=== PATIENT | female | born 1950 | race African-American/Black ===

== ENCOUNTER 2016-07-30 10:22 | Outpatient (CLI) | payer MEDICARE ==
[2016-07-30 11:28] LABS: ALT (SGPT) 10 U/L (0-55); AST (SGOT) 14 U/L (5-34); Alkaline Phosphatase 126 U/L (40-150); Anion Gap 16 mmol/L (10-20); BUN (Urea Nitrogen) 10 mg/dL (9.8-20.1); Bilirubin, Total 0.4 mg/dL (0.2-1.2); Calc. Creatinine Clearance 0 mL/min (70-130); Calcium 8.7 mg/dL (7.8-10.44); Carbon Dioxide 27 mmol/L (23-31); Chloride 100 mmol/L (98-107); Estimated GFR-MDRD 81; Globulin 3.7 g/dL (2.4-3.5); LDL Cholesterol, Calculated 165 mg/dL; Protein, Total 7.3 g/dL (5.8-8.1)
[2016-07-30 11:29] LABS: Hemoglobin A1c 6.9 % (4.0-6.0)
[2016-07-30 11:32] LABS: #Basophils 0.1 thou/uL (0.0-0.2); #Eosinphils 0.3 thou/uL (0.0-0.7); #Lymphocytes 3.4 thou/uL (1.20-3.40); #Monocytes 0.8 thou/uL (0.11-0.59); %Basophils 0.6 % (0.0-1.0); %Eosinophils 2.2 % (0.0-10.0); %Monocytes 7.2 % (0.0-10.0); Hematocrit 29.9 % (36.0-47.0); Mean Platelet Volume 6.6 fL (7.4-10.4); Red Blood Cell (RBC) Count 4.03 mill/uL (4.20-5.40); White Blood Cell (WBC) Count 11.6 thou/uL (4.8-10.8)
[2016-07-30 11:55] LABS: Anisocytosis SLIGHT = 6-15 cells (100X) (0-5/hpf); Microcytosis SLIGHT = 6-15 cells (100X) (0-5/hpf)
== END 2016-07-30 10:23 | disposition home or self-care (01) ==
LOC: HPCALD 10:22
PROVIDERS: ATTEND Family Medicine
DX: E11.9 Type 2 diabetes mellitus without complications (principal); I10 Essential (primary) hypertension; E07.9 Disorder of thyroid, unspecified; E78.4 Other hyperlipidemia
CPT/HCPCS: 36415; 80053; 80061; 83036; 84439; 84443; 84481; 85025

== ENCOUNTER 2016-09-08 12:43 | Emergency (ER) | payer MEDICARE ==
[2016-09-08] MEDS ORDERED: Nitroglycerin 0.4 MG TAB (25 Tab Bottle) ONE (13:18)
[2016-09-08 13:27] LABS: ALT (SGPT) 9 U/L (0-55); AST (SGOT) 15 U/L (5-34); Alkaline Phosphatase 125 U/L (40-150); Anion Gap 12 mmol/L (10-20); BUN (Urea Nitrogen) 13 mg/dL (9.8-20.1); Bilirubin, Total 0.3 mg/dL (0.2-1.2); Calc. Creatinine Clearance 0 mL/min (70-130); Calcium 9.2 mg/dL (7.8-10.44); Carbon Dioxide 29 mmol/L (23-31); Chloride 102 mmol/L (98-107); Estimated GFR-MDRD 77; Globulin 4.5 g/dL (2.4-3.5); Lipase 17 U/L (8-78); Protein, Total 8.2 g/dL (5.8-8.1)
[2016-09-08 13:34] LABS: Troponin I Less than 0.010 ng/mL (< 0.028)
[2016-09-08] MEDS ORDERED: Nitroglycerin 2% Ointment 1 INCH/1 GM Packet ONE (13:35)
[2016-09-08 13:37] LABS: #Basophils 0.1 thou/uL (0.0-0.2); #Eosinphils 0.2 thou/uL (0.0-0.7); #Lymphocytes 2.5 thou/uL (1.20-3.40); #Monocytes 0.7 thou/uL (0.11-0.59); #Neutrophils 5.7 thou/uL (1.40-6.50); %Basophils 1.2 % (0.0-1.0); %Eosinophils 2.2 % (0.0-10.0); %Monocytes 7.1 % (0.0-10.0); Anisocytosis SLIGHT = 6-15 cells (100X) (0-5/hpf); Hematocrit 33.7 % (36.0-47.0); Mean Platelet Volume 7.5 fL (7.4-10.4); Microcytosis SLIGHT = 6-15 cells (100X) (0-5/hpf); Red Blood Cell (RBC) Count 4.52 mill/uL (4.20-5.40); White Blood Cell (WBC) Count 9.2 thou/uL (4.8-10.8)
[2016-09-08 13:38] LABS: PTT 26.9 SEC (22.9-36.1); Prothrombin Time 14.1 SEC (12.0-14.7)
[2016-09-08] MEDS ORDERED: Iopamidol 370 76% 100 ML VIAL ONE (14:20)
[2016-09-08] MEDS ORDERED: Pantoprazole 40 MG VIAL ONE (15:08)
[2016-09-08 17:20] LABS: Troponin I Less than 0.010 ng/mL (< 0.028)
[2016-09-08 20:34] LABS: Troponin I 0.012 ng/mL (< 0.028)
--- NOTE | 2016-09-08 21:30 | RAD ---
PORTABLE CHEST: Date: 09-08-16 FINDINGS: An AP portable film at 1310 shows a normal sized heart and clear lungs. No acute infiltrate or effu renetta was appreciated. There is no vascular congestion or edema. The trachea is midline. IMPRESSION: No acute thoracic finding. POS: HOME
--- NOTE | 2016-09-08 22:05 | CT ---
CT ANGIO OF CHEST WITH CONTRAST: Date: 09-08-[address] of the chest was performed for evaluation of chest pain. Axial slices were acquired after giving IV contrast. Following this, oblique coronal reformations through the pulmonary arteries we re obtained. FINDINGS: There is excellent opacification of the pulmonary arteries with no sign of emboli suggested. The ao rta shows no sign of dissection or aneurysm. There is no evidence of pericardial effusion. I belie ve the patient may have an aberrant right subclavian artery. There is no sign of mediastinal mass or adenopathy. The lungs are clear. No pulmonary nodules or i nfiltrates were seen. There is a prominent fat pad on the right in the cardiophrenic angle. There are no effusions. A large hiatal hernia was noted in the chest. IMPRESSION: 1. No evidence of pulmonary embolism or other acute thoracic findings. 2. Large hiatal hernia. POS: HOME
== END 2016-09-08 20:00 | disposition short-term general hospital (02) ==
LOC: BURERS 12:43
DX: R07.9 Chest pain, unspecified (principal); K44.9 Diaphragmatic hernia without obstruction or gangrene; I10 Essential (primary) hypertension; F41.9 Anxiety disorder, unspecified; F32.9 Major depressive disorder, single episode, unspecified
CPT/HCPCS: 71010; 71275; 80053; 82553; 83690; 83880; 84484; 85025; 85379; 85610; 85730; 93005; 94760; 96374; 96375; C9113; J2270

== ENCOUNTER 2017-02-05 11:01 | Outpatient (CLI) | payer MEDICARE ==
[2017-02-05 13:02] LABS: ALT (SGPT) 9 U/L (8-55); AST (SGOT) 14 U/L (5-34); Albumin 3.8 g/dL (3.4-4.8); Alkaline Phosphatase 105 U/L (40-150); Anion Gap 16 mmol/L (10-20); BUN (Urea Nitrogen) 14 mg/dL (9.8-20.1); Bilirubin, Total 0.3 mg/dL (0.2-1.2); Calc. Creatinine Clearance 0 mL/min (70-130); Calcium 9.4 mg/dL (7.8-10.44); Carbon Dioxide 29 mmol/L (23-31); Cardiac Risk 4.5 (Less than 4.5); Chloride 100 mmol/L (98-107); Cholesterol 261 mg/dl (< 200 Desired); Estimated GFR-MDRD 86; Globulin 3.8 g/dL (2.4-3.5); Glucose 125 mg/dL (80-115); HDL Cholesterol 58 mg/dL (>60 Neg Risk); LDL Cholesterol, Calculated 184 mg/dL; Protein, Total 7.6 g/dL (6.0-8.3); Sodium 141 mmol/L (136-145); Triglycerides 94 mg/dL (Less than 150)
[2017-02-05 13:09] LABS: Free T4 (Free Thyroxine) 0.72 ng/dL (0.70-1.48); Thyroid Stimulating Hormone 5.7473 uIU/mL (0.35-4.94)
[2017-02-05 13:31] LABS: Hemoglobin A1c 7.1 % (4.0-6.0)
[2017-02-05 13:57] LABS: #Basophils 0.1 thou/uL (0.0-0.2); #Eosinphils 0.2 thou/uL (0.0-0.7); #Lymphocytes 2.9 thou/uL (1.20-3.40); #Monocytes 0.6 thou/uL (0.11-0.59); #Neutrophils 7.6 thou/uL (1.40-6.50); %Basophils 1.1 % (0.0-1.0); %Eosinophils 1.7 % (0.0-10.0); %Lymphocytes 25.1 % (21.0-51.0); %Monocytes 5.6 % (0.0-10.0); %Neutrophils 66.5 % (42.0-75.0); Hemoglobin 10.2 g/dL (12.0-16.0); Mean Corpuscular HGB CONC 31.4 g/dL (32.0-36.0); Mean Corpuscular Hemoglobin 23.6 pg (27.0-31.0); Mean Corpuscular Volume 75.1 fl (81.0-99.0); Mean Platelet Volume 7.4 fL (7.4-10.4); Platelet Count 345 thou/uL (130-400); RBC Distribution Width 15.7 % (11.5-14.5); Red Blood Cell (RBC) Count 4.32 mill/uL (4.20-5.40); White Blood Cell (WBC) Count 11.5 thou/uL (4.8-10.8)
[2017-02-05 13:58] LABS: Anisocytosis SLIGHT = 6-15 cells (100X) (0-5/hpf); MDiff Complete? YES; Microcytosis SLIGHT = 6-15 cells (100X) (0-5/hpf); PLT Morphology Comment Appears Adequate
[2017-02-05 18:53] LABS: Ferritin 14.47 ng/mL (10-291)
== END 2017-02-05 11:02 | disposition home or self-care (01) ==
LOC: HPCALD 11:01
PROVIDERS: ATTEND Family Medicine
DX: E78.5 Hyperlipidemia, unspecified (principal); E11.9 Type 2 diabetes mellitus without complications; I10 Essential (primary) hypertension; D50.9 Iron deficiency anemia, unspecified; E07.9 Disorder of thyroid, unspecified
CPT/HCPCS: 36415; 80053; 80061; 82728; 83036; 84439; 84443; 85025

== ENCOUNTER 2017-04-07 09:13 | Outpatient (CLI) | payer MEDICARE ==
--- NOTE | 2017-04-07 18:55 | RAD ---
CERVICAL SPINE 04/07/17 AP, lateral, and open mouth views are provided. No fracture or dislocation was seen, but there is lo ss of the normal cervical lordosis which might be due to muscle spasm. Slight disc space narrowing i s present at C5-C6. Small anterior osteophytes are seen at C4 and below. There may be the beginnings of some minor posterior osteophytes at C5-C6. The C1 to dens distance is normal. IMPRESSION: 1. Mild degenerative changes, most prominent at C5-C6. 2. Loss of cervical lordosis. POS: HOME
--- NOTE | 2017-04-07 18:57 | RAD ---
LUMBAR SPINE THREE VIEWS: 04/07/17 No fracture or dislocation was seen. There is some minor anterolisthesis of L4 on L5 that appears to be due to prominent facet arthritis at this level. In general, facet arthritis is abundant at L3 th rough S1 levels. There is no disc space narrowing. No area of bony destruction was seen. The SI join ts appear normal. Faint calcification is seen in the aorta. IMPRESSION: Degenerative changes mostly consisting of prominent facet arthritis at L3 and below. POS: HOME
== END 2017-04-07 09:14 | disposition home or self-care (01) ==
LOC: BURRAD 09:13
PROVIDERS: ATTEND Family Medicine
DX: M47.22 Other spondylosis with radiculopathy, cervical region (principal); M54.5 Low back pain; M47.816 Spondylosis without myelopathy or radiculopathy, lumbar region
CPT/HCPCS: 72040; 72100

== ENCOUNTER 2022-06-26 15:18 | Outpatient (CLI) | payer MEDICARE | END 2022-06-26 15:19 | disposition home or self-care (01) | LOC: BURRAD 15:18 | PROVIDERS: ATTEND Family Medicine | DX: M79.602 Pain in left arm (principal) | CPT/HCPCS: 72040 ==